=== PATIENT | male | born 1970 | race Caucasian/White ===

== ENCOUNTER 2020-11-19 11:27 | Inpatient (IN) | payer OTHER ==
[2020-11-19 13:19] LABS: PH,URINE 5.5 (5.0-8.0); URINE APPEARANCE CLEAR; URINE BILIRUBIN NEGATIVE (NEGATIVE); URINE COLOR YELLOW; URINE GLUCOSE (UA) NEGATIVE (NEGATIVE); URINE KETONE NEGATIVE (NEGATIVE); URINE LEUK ESTERASE NEGATIVE (NEGATIVE); URINE NITRITE NEGATIVE (NEGATIVE); URINE PROTEIN TRACE (NEGATIVE); URINE UROBILINOGEN 0.2 mg/dL (0.2-1.0)
[2020-11-19 13:36] LABS: HEMATOCRIT 42.2 % (35.4-49); HEMOGLOBIN 14.5 GM/dL (11.7-16.9); MCHC 34.3 g/dl (32.0-35.9); MEAN CELL VOLUME 87.5 fl (80-96); MEAN PLT VOLUME 9.7 fl (7.5-11.1); PLATELET COUNT 219 10^3/uL (134-434); RBC 4.82 M/mm3 (4.00-5.60); RDW 13.3 % (11.9-15.9); WHITE BLOOD COUNT 7.3 K/mm3 (4.0-10.0)
[2020-11-19 13:55] LABS: CHLORIDE 104 mmol/L (98-107); SODIUM 141 mmol/L (136-145)
[2020-11-19 13:58] LABS: ANION GAP 7 MMOL/L (8-16); BLOOD UREA NITROGEN 11.1 mg/dL (7-18); CO2 31 mmol/L (21-32); GLUCOSE,RANDOM 87 mg/dL (74-106); LIPASE 83 U/L (73-393); MAGNESIUM 2.2 mg/dL (1.8-2.4)
[2020-11-19 14:01] LABS: CREATININE 0.8 mg/dL (0.55-1.3); PHOSPHOROUS 3.5 mg/dL (2.5-4.9); SGOT/AST 22 U/L (15-37); SGPT/ALT 38 U/L (13-61)
[2020-11-19 14:02] LABS: BILIRUBIN,TOTAL 0.8 mg/dL (0.2-1)
[2020-11-19 14:03] LABS: ALK PHOS 103 U/L (45-117)
[2020-11-19] MEDS ORDERED: PIPERACILLIN/TAZOB 4.5 GM 4.5 GM in DEXTROSE 5%-WATER 100 ML IVPB ONE (15:55)
[2020-11-19] MEDS ORDERED: VANCOMYCIN 1 GM in D5W (PRE-DOCKED) 1,000 MG/250 ML IVPB ONE (15:58)
[2020-11-19] MEDS ORDERED: VANCOMYCIN HCL 1,500 MG in DEXTROSE 5%-WATER - 500 ML IVPB ONE (15:59)
[2020-11-19] MEDS ORDERED: VANCOMYCIN 1 GRAM (PRE-DOCKED) 1,000 MG/250 ML BAG IVPB ONE (16:17)
[2020-11-19] MEDS ORDERED: VANCOMYCIN 500 MG VIAL (RESTRICTED TO ID ONLY) ONE (16:17)
[2020-11-19] MEDS ORDERED: PIPERACILLIN/TAZOB 4.5 GM 4.5 GM/100 ML BAG IVPB ONE (16:17)
[2020-11-19] MEDS: DEXTROSE 5%-NORMAL SALINE 1,000 ML IV SCH (19:51)
[2020-11-19] MEDS ORDERED: DEXTROSE 5%-WATER 100 ML IVPB ONE (23:39)
[2020-11-19] MEDS ORDERED: PIPERACILLIN/TAZOBACTAM 4.5 GM VIAL IVPB ONE (23:39)
[2020-11-19] MEDS: PIPERACILLIN/TAZOB 4.5 GM 4.5 GM in DEXTROSE 5%-WATER 100 ML IVPB SCH (23:48)
[2020-11-20 02:54] VITALS: BMI 31.0
[2020-11-20] MEDS ORDERED: DEXTROSE 5%-WATER 100 ML IVPB ONE ×3 (06:02→20:33)
[2020-11-20] MEDS ORDERED: PIPERACILLIN/TAZOBACTAM 4.5 GM VIAL IVPB ONE ×2 (06:02→15:24)
[2020-11-20] MEDS: PIPERACILLIN/TAZOB 4.5 GM 4.5 GM in DEXTROSE 5%-WATER 100 ML IVPB SCH ×2 (06:21→15:27)
[2020-11-20] MEDS ORDERED: CEFTRIAXONE 1 GM in DEXTROSE 5%-WATER - 50 ML IVPB SCH (10:00)
[2020-11-20] MEDS: PANTOPRAZOLE SODIUM 40 MG VIAL IVPUSH SCH (10:01)
[2020-11-20] MEDS ORDERED: ACETAMINOPHEN 1000 MG/100 ML VIAL (NON FORMULARY) IVPB PRN (10:42)
[2020-11-20] MEDS: DEXTROSE 5%-NORMAL SALINE 1,000 ML IV SCH ×2 (15:30→18:08)
[2020-11-20] MEDS: TAMSULOSIN HCL 0.4 MG CAP PO SCH (18:19)
[2020-11-20] MEDS: CEFTRIAXONE 2 GM in DEXTROSE 5%-WATER 100 ML IVPB SCH (21:29)
[2020-11-20] MEDS ORDERED: PIPERACILLIN/TAZOB 4.5 GM 4.5 GM in DEXTROSE 5%-WATER 100 ML IVPB SCH (22:00)
[2020-11-21] MEDS: DEXTROSE 5%-NORMAL SALINE 1,000 ML IV SCH ×4 (00:04→20:39)
[2020-11-21] MEDS: TAMSULOSIN HCL 0.4 MG CAP PO SCH (08:48)
[2020-11-21] MEDS: PANTOPRAZOLE SODIUM 40 MG VIAL IVPUSH SCH (08:48)
[2020-11-21 08:51] LABS: BASO % 0.6 % (0-2.0); EOS % 1.9 % (0-4.5); HEMATOCRIT 39.7 % (35.4-49); HEMOGLOBIN 13.4 GM/dL (11.7-16.9); LYMPH % 21.8 % (8-40); MCH 29.8 pg (25.7-33.7); MCHC 33.7 g/dl (32.0-35.9); MEAN CELL VOLUME 88.4 fl (80-96); MEAN PLT VOLUME 9.8 fl (7.5-11.1); MONO % 12.3 % (3.8-10.2); NEUT % 63.4 % (42.8-82.8); PLATELET COUNT 228 10^3/uL (134-434); RDW 13.6 % (11.9-15.9); WHITE BLOOD COUNT 4.8 K/mm3 (4.0-10.0)
[2020-11-21 09:14] LABS: BLOOD UREA NITROGEN 7.6 mg/dL (7-18); CALCIUM 8.5 mg/dL (8.5-10.1)
[2020-11-21 09:17] LABS: CREATININE 0.8 mg/dL (0.55-1.3)
[2020-11-21] MEDS ORDERED: DEXTROSE 5%-WATER 100 ML IVPB ONE (09:21)
[2020-11-21] MEDS: CEFTRIAXONE 2 GM in DEXTROSE 5%-WATER 100 ML IVPB SCH (09:36)
[2020-11-21] MEDS ORDERED: MAG HYDROX/AL HYDROX/SIMETH 30 ML UNIT-DOSE CUP PO PRN (20:27)
[2020-11-22] MEDS ORDERED: PT OWN MED DRAWER 7, Y5N ONE (09:54)
[2020-11-22] MEDS ORDERED: DEXTROSE 5%-WATER 100 ML IVPB ONE (09:54)
[2020-11-22] MEDS: PANTOPRAZOLE SODIUM 40 MG VIAL IVPUSH SCH (10:06)
[2020-11-22] MEDS: CEFTRIAXONE 2 GM in DEXTROSE 5%-WATER 100 ML IVPB SCH (10:07)
[2020-11-22] MEDS: TAMSULOSIN HCL 0.4 MG CAP PO SCH (10:08)
[2020-11-22 13:36] VITALS: BP 137/81; PULSE 74; TEMP 98.7
== END 2020-11-22 18:04 | disposition home or self-care (01) | DRG 392 ==
LOC: JER 11:27 → JERBED 16:01 → J8W 20:08
PROVIDERS: ADMIT Internal Medicine; ATTEND Internal Medicine
PROC: 02HV33Z Insertion of Infusion Device into Superior Vena Cava, Percutaneous Approach (ICD-10-PCS; principal; 2020-11-22)
PROC: B518ZZA Fluoroscopy of Superior Vena Cava, Guidance (ICD-10-PCS; 2020-11-22)
DX: K57.20 Diverticulitis of large intestine with perforation and abscess without bleeding (principal); N32.1 Vesicointestinal fistula; K21.9 Gastro-esophageal reflux disease without esophagitis; I10 Essential (primary) hypertension; N32.89 Other specified disorders of bladder; N40.1 Benign prostatic hyperplasia with lower urinary tract symptoms; R33.8 Other retention of urine
CPT/HCPCS: 36415; 36569; 74177-TC; 77001-TC-FY; 80048; 80053; 81003; 82550; 82553; 83690; 83735; 84100; 84484; 85025; 85027; 86140; 87086; 87491; 87591; 93005; 93010; 99285-25; C1751; C9803; G0463; J0131; Q9967; U0003; U0005

== ENCOUNTER 2021-01-16 21:04 | Inpatient (IN) | payer OTHER ==
[2021-01-16] MEDS ORDERED: ACETAMINOPHEN 1000 MG/100 ML VIAL IVPB ONE (22:46)
[2021-01-16] MEDS ORDERED: SODIUM CHLORIDE 1,000 ML IV STA (22:46)
[2021-01-16] MEDS ORDERED: PIPERACILLIN/TAZOB 4.5 GM 4.5 GM in DEXTROSE 5%-WATER 100 ML IVPB ONE (22:49)
[2021-01-16] MEDS ORDERED: VANCOMYCIN 1 GM in D5W (PRE-DOCKED) 1,000 MG/250 ML IVPB ONE (22:49)
[2021-01-16 23:00] LABS: EPI CELLS 2 /uL (0-25.1); HYALINE CASTS 2 /uL (0-3.1); URINE APPEARANCE CLOUDY; URINE BACTERIA 533 /uL (0-1359); URINE BILIRUBIN NEGATIVE (NEGATIVE); URINE COLOR YELLOW; URINE GLUCOSE (UA) NEGATIVE (NEGATIVE); URINE KETONE NEGATIVE (NEGATIVE); URINE LEUK ESTERASE 3+ (NEGATIVE); URINE NITRITE NEGATIVE (NEGATIVE); URINE PROTEIN NEGATIVE (NEGATIVE); URINE RBC 9 /uL (0-23.9); URINE UROBILINOGEN 0.2 mg/dL (0.2-1.0); URINE WBC 701 /uL (0-25.8)
[2021-01-16] MEDS ORDERED: PIPERACILLIN/TAZOB 4.5 GM 4.5 GM/100 ML BAG IVPB ONE (23:07)
[2021-01-16] MEDS ORDERED: ACETAMINOPHEN INJECTION 100 ML IVPB ONE (23:07)
[2021-01-16 23:20] LABS: HEMATOCRIT 38.8 % (35.4-49); HEMOGLOBIN 13.2 GM/dL (11.7-16.9); MCH 28.8 pg (25.7-33.7); MEAN CELL VOLUME 84.8 fl (80-96); PLATELET COUNT 237 10^3/uL (134-434); RBC 4.58 M/mm3 (4.00-5.60); RDW 13.1 % (11.9-15.9); WHITE BLOOD COUNT 12.7 K/mm3 (4.0-10.0)
[2021-01-16 23:21] LABS: INR 1.15 (0.83-1.09); PROTHROMBIN TIME (PATIENT) 13.5 SEC (9.7-13.0)
[2021-01-16 23:22] LABS: VENOUS BASE EXCESS -0.6 mmol/L (-2-2); VENOUS O2 SATURATION 32.2 % (70-80); VENOUS PCO2 44.8 mmHg (38-52); VENOUS PH 7.365 (7.310-7.410)
[2021-01-16 23:24] LABS: ACTIVATED PTT 39.8 SECONDS (25.2-36.5)
[2021-01-16] MEDS ORDERED: morphine CARPU-JECT 4 MG/1 ML DISP.SYRIN IVPUSH ONE (23:35)
[2021-01-16 23:37] LABS: CHLORIDE 106 mmol/L (98-107); SODIUM 139 mmol/L (136-145)
[2021-01-16] MEDS ORDERED: ONDANSETRON 4 MG/2 ML VIAL IVPUSH ONE (23:37)
[2021-01-16 23:39] LABS: ANION GAP 6 MMOL/L (8-16); BLOOD UREA NITROGEN 14.4 mg/dL (7-18); CALCIUM 8.5 mg/dL (8.5-10.1); CO2 27 mmol/L (21-32); GLUCOSE,RANDOM 100 mg/dL (74-106)
[2021-01-16 23:40] LABS: ANISOCYTOSIS 1+; MACROCYTOSIS 0; PLATELET ESTIMATE NORMAL
[2021-01-16 23:42] LABS: CREATININE 1.1 mg/dL (0.55-1.3); SGOT/AST 20 U/L (15-37); SGPT/ALT 34 U/L (13-61)
[2021-01-16 23:43] LABS: TOT PROT 7.9 g/dl (6.4-8.2)
[2021-01-16 23:45] LABS: ALK PHOS 116 U/L (45-117)
[2021-01-17] MEDS ORDERED: ONDANSETRON 4 MG/2 ML VIAL ONE (01:53)
[2021-01-17] MEDS ORDERED: morphine SULFATE 4 MG/ML VIAL ONE (01:53)
[2021-01-17] MEDS ORDERED: ACETAMINOPHEN 1000 MG/100 ML VIAL IVPB ONE (04:50)
[2021-01-17] MEDS ORDERED: SODIUM CHLORIDE 1,000 ML IV STA (05:04)
[2021-01-17 06:10] LABS: BASO % 0.5 % (0-2.0); EOS % 0.2 % (0-4.5); HEMATOCRIT 37.8 % (35.4-49); HEMOGLOBIN 13.1 GM/dL (11.7-16.9); LYMPH % 5.7 % (8-40); MCH 29.3 pg (25.7-33.7); MCHC 34.7 g/dl (32.0-35.9); MEAN CELL VOLUME 84.5 fl (80-96); MEAN PLT VOLUME 9.4 fl (7.5-11.1); MONO % 7.1 % (3.8-10.2); NEUT % 86.5 % (42.8-82.8); PLATELET COUNT 208 10^3/uL (134-434); RBC 4.47 M/mm3 (4.00-5.60); RDW 12.9 % (11.9-15.9); WHITE BLOOD COUNT 14.5 K/mm3 (4.0-10.0)
[2021-01-17 06:30] LABS: CALCIUM 8.2 mg/dL (8.5-10.1)
[2021-01-17 06:35] LABS: CREATININE 0.9 mg/dL (0.55-1.3)
[2021-01-17] MEDS ORDERED: PIPERACILLIN/TAZOBACTAM 4.5 GM VIAL IVPB ONE ×2 (07:49→17:21)
[2021-01-17] MEDS ORDERED: DEXTROSE 5%-WATER 100 ML IVPB ONE ×2 (07:49→17:21)
[2021-01-17] MEDS: DEXTROSE 5%-NORMAL SALINE 1,000 ML IV SCH ×2 (07:53→22:27)
[2021-01-17] MEDS: PIPERACILLIN/TAZOB 4.5 GM 4.5 GM in DEXTROSE 5%-WATER 100 ML IVPB SCH ×3 (07:53→17:27)
[2021-01-17] MEDS: TAMSULOSIN HCL 0.4 MG CAP PO SCH (07:55)
[2021-01-17] MEDS: ENOXAPARIN NA (PORCINE) 40 MG/0.4 ML DISP.SYRIN SQ SCH (09:34)
[2021-01-17] MEDS: FAMOTIDINE 40 MG/5 ML ORAL SUSPENSION PO SCH (09:35)
[2021-01-17] MEDS ORDERED: VALSARTAN 160 MG TABLET PO SCH (10:00)
[2021-01-17] MEDS ORDERED: amLODIPine BESYLATE 10 MG TABLET (FP) PO ONE (10:00)
[2021-01-17] MEDS ORDERED: VANCOMYCIN HCL 1,500 MG in DEXTROSE 5%-WATER - 500 ML IVPB SCH (12:00)
[2021-01-17] MEDS ORDERED: VANCOMYCIN HCL 1,500 MG/500 ML BAG IVPB SCH (12:00)
[2021-01-17] MEDS ORDERED: PT OWN MED DRAWER 7, Y5N ONE (12:58)
[2021-01-17] MEDS: ACETAMINOPHEN 1000 MG/100 ML VIAL IVPB PRN ×2 (13:28→21:34)
[2021-01-17] MEDS ORDERED: morphine SULFATE 4 MG/ML VIAL IVPUSH ONE (17:48)
[2021-01-18] MEDS ORDERED: DEXTROSE 5%-WATER 100 ML IVPB ONE ×2 (01:35→08:03)
[2021-01-18] MEDS ORDERED: PIPERACILLIN/TAZOBACTAM 4.5 GM VIAL IVPB ONE ×2 (01:35→08:03)
[2021-01-18] MEDS: PIPERACILLIN/TAZOB 4.5 GM 4.5 GM in DEXTROSE 5%-WATER 100 ML IVPB SCH ×2 (01:36→09:32)
[2021-01-18] MEDS: DEXTROSE 5%-NORMAL SALINE 1,000 ML IV SCH ×2 (06:18→08:06)
[2021-01-18] MEDS ORDERED: MIDAZOLAM HCL 2 MG/2 ML SINGLE DOSE VIAL ONE (08:37)
[2021-01-18] MEDS ORDERED: PROPOFOL 20 ML ONE (08:37)
[2021-01-18 08:46] LABS: BASO % 0.3 % (0-2.0); HEMATOCRIT 34.1 % (35.4-49); HEMOGLOBIN 11.6 GM/dL (11.7-16.9); LYMPH % 4.8 % (8-40); MCH 28.9 pg (25.7-33.7); MCHC 34.2 g/dl (32.0-35.9); MEAN CELL VOLUME 84.4 fl (80-96); MEAN PLT VOLUME 8.7 fl (7.5-11.1); MONO % 6.4 % (3.8-10.2); NEUT % 88.5 % (42.8-82.8); PLATELET COUNT 192 10^3/uL (134-434); RBC 4.03 M/mm3 (4.00-5.60); RDW 13.1 % (11.9-15.9); WHITE BLOOD COUNT 16.2 K/mm3 (4.0-10.0)
[2021-01-18] MEDS: TAMSULOSIN HCL 0.4 MG CAP PO SCH (08:46)
[2021-01-18] MEDS ORDERED: oxyCODONE HCL 5 MG TABLET PO PRN (08:46)
[2021-01-18] MEDS ORDERED: ONDANSETRON 4 MG/2 ML VIAL IVPUSH PRN ×2 (08:46→11:14)
[2021-01-18] MEDS ORDERED: LACTATED RINGERS SOLUTION 1,000 ML IV SCH (09:00)
[2021-01-18 09:12] LABS: CALCIUM 8.2 mg/dL (8.5-10.1)
[2021-01-18 09:14] LABS: CREATININE 0.9 mg/dL (0.55-1.3)
[2021-01-18 09:16] LABS: BILIRUBIN,TOTAL 2.1 mg/dL (0.2-1); TOT PROT 6.5 g/dl (6.4-8.2)
[2021-01-18 09:17] LABS: ALBUMIN 2.9 g/dl (3.4-5.0)
[2021-01-18] MEDS ORDERED: LIDOCAINE HCL/PF 2% SDV 5ML VIAL ONE (09:24)
[2021-01-18] MEDS ORDERED: ceFAZolin SODIUM 1 GM VIAL IVPB ONE ×2 (09:36→09:43)
[2021-01-18] MEDS ORDERED: amLODIPine BESYLATE 10 MG TABLET (FP) PO SCH (10:00)
[2021-01-18] MEDS: ENOXAPARIN NA (PORCINE) 40 MG/0.4 ML DISP.SYRIN SQ SCH (10:16)
[2021-01-18] MEDS ORDERED: DEXAMETHASONE SOD PHOSPHATE 4 MG/1 ML VIAL ONE (10:17)
[2021-01-18] MEDS: FAMOTIDINE 40 MG/5 ML ORAL SUSPENSION PO SCH (10:17)
[2021-01-18] MEDS ORDERED: LIDOCAINE HCL 2% JELLY 10 ML CARTRIDGE ONE ×2 (10:41→10:43)
[2021-01-18] MEDS ORDERED: HYDROmorphone HCl 2 MG/ML VIAL ONE (11:11)
[2021-01-18] MEDS ORDERED: HYDROmorphone HCl 2 MG/ML VIAL IVPUSH ONE ×2 (11:14→12:23)
[2021-01-18] MEDS ORDERED: DEXTROSE 5%-NORMAL SALINE 1,000 ML IV SCH (11:30)
[2021-01-18] MEDS: FINASTERIDE 5 MG TABLET (FP) PO SCH (13:39)
[2021-01-18] MEDS: LACTATED RINGERS SOLUTION 1,000 ML IV SCH ×2 (13:39→21:38)
[2021-01-18] MEDS: ERTAPENEM SODIUM 1 GM in SODIUM CHLORIDE 50 ML IVPB SCH (17:45)
[2021-01-18] MEDS ORDERED: PIPERACILLIN/TAZOB 4.5 GM 4.5 GM in DEXTROSE 5%-WATER 100 ML IVPB SCH (18:00)
[2021-01-18] MEDS: oxyCODONE HCL 5 MG TABLET PO PRN (21:49)
[2021-01-19] MEDS: LACTATED RINGERS SOLUTION 1,000 ML IV SCH ×2 (05:48→12:23)
[2021-01-19] MEDS: TAMSULOSIN HCL 0.4 MG CAP PO SCH (08:52)
[2021-01-19] MEDS: ERTAPENEM SODIUM 1 GM in SODIUM CHLORIDE 50 ML IVPB SCH (09:43)
[2021-01-19] MEDS: FINASTERIDE 5 MG TABLET (FP) PO SCH (10:05)
[2021-01-19] MEDS: ENOXAPARIN NA (PORCINE) 40 MG/0.4 ML DISP.SYRIN SQ SCH (10:05)
[2021-01-19] MEDS: amLODIPine BESYLATE 10 MG TABLET (FP) PO SCH (10:05)
[2021-01-19] MEDS ORDERED: PT OWN MED DRAWER 7, Y5N ONE (10:10)
[2021-01-19] MEDS: FAMOTIDINE 40 MG/5 ML ORAL SUSPENSION PO SCH (10:11)
[2021-01-19] MEDS: ACETAMINOPHEN 325 MG TABLET (FP) PO PRN ×2 (12:19→20:13)
[2021-01-19] MEDS: oxyCODONE HCL 5 MG TABLET PO PRN (22:47)
[2021-01-20] MEDS: ACETAMINOPHEN 325 MG TABLET (FP) PO PRN (02:37)
[2021-01-20] MEDS ORDERED: PT OWN MED DRAWER 7, Y5N ONE (09:04)
[2021-01-20] MEDS: FAMOTIDINE 40 MG/5 ML ORAL SUSPENSION PO SCH (09:05)
[2021-01-20] MEDS: TAMSULOSIN HCL 0.4 MG CAP PO SCH (09:05)
[2021-01-20] MEDS: ERTAPENEM SODIUM 1 GM in SODIUM CHLORIDE 50 ML IVPB SCH (09:05)
[2021-01-20] MEDS: ENOXAPARIN NA (PORCINE) 40 MG/0.4 ML DISP.SYRIN SQ SCH (09:05)
[2021-01-20] MEDS: FINASTERIDE 5 MG TABLET (FP) PO SCH (09:05)
[2021-01-20] MEDS: amLODIPine BESYLATE 10 MG TABLET (FP) PO SCH (09:05)
[2021-01-20 10:04] LABS: BASO % 0.3 % (0-2.0); EOS % 0.6 % (0-4.5); HEMATOCRIT 40.9 % (35.4-49); HEMOGLOBIN 13.5 GM/dL (11.7-16.9); LYMPH % 10.2 % (8-40); MCH 28.7 pg (25.7-33.7); MEAN CELL VOLUME 86.8 fl (80-96); MEAN PLT VOLUME 8.9 fl (7.5-11.1); MONO % 8.4 % (3.8-10.2); NEUT % 80.5 % (42.8-82.8); PLATELET COUNT 308 10^3/uL (134-434); RBC 4.71 M/mm3 (4.00-5.60); RDW 13.5 % (11.9-15.9)
[2021-01-20 10:27] LABS: BLOOD UREA NITROGEN 12.2 mg/dL (7-18); CALCIUM 8.9 mg/dL (8.5-10.1)
[2021-01-20 10:28] LABS: ALBUMIN 3.3 g/dl (3.4-5.0)
[2021-01-20 10:32] LABS: CREATININE 0.8 mg/dL (0.55-1.3)
[2021-01-20 10:33] LABS: TOT PROT 7.6 g/dl (6.4-8.2)
[2021-01-20] MEDS ORDERED: INSULIN (NOVOLOG) ASPART 100 UNITS/ML 10ML VIAL ONE (11:02)
[2021-01-20 14:19] LABS: PLATELET ESTIMATE NORMAL
[2021-01-20] MEDS ORDERED: ACETAMINOPHEN 1000 MG/100 ML VIAL IVPB ONE (17:55)
[2021-01-20] MEDS: LACTATED RINGERS SOLUTION 1,000 ML IV SCH (22:07)
[2021-01-21] MEDS: LACTATED RINGERS SOLUTION 1,000 ML IV SCH ×2 (06:11→11:33)
[2021-01-21] MEDS ORDERED: PT OWN MED DRAWER 7, Y5N ONE (11:06)
[2021-01-21] MEDS: FINASTERIDE 5 MG TABLET (FP) PO SCH (11:31)
[2021-01-21] MEDS: amLODIPine BESYLATE 10 MG TABLET (FP) PO SCH (11:31)
[2021-01-21] MEDS: TAMSULOSIN HCL 0.4 MG CAP PO SCH (11:31)
[2021-01-21] MEDS: ENOXAPARIN NA (PORCINE) 40 MG/0.4 ML DISP.SYRIN SQ SCH (11:32)
[2021-01-21] MEDS: ERTAPENEM SODIUM 1 GM in SODIUM CHLORIDE 50 ML IVPB SCH (11:32)
[2021-01-21] MEDS: FAMOTIDINE 40 MG/5 ML ORAL SUSPENSION PO SCH (11:33)
[2021-01-21] MEDS: ACETAMINOPHEN 325 MG TABLET (FP) PO PRN (13:31)
[2021-01-22] MEDS: LACTATED RINGERS SOLUTION 1,000 ML IV SCH (01:17)
[2021-01-22 08:37] LABS: HEMATOCRIT 40.3 % (35.4-49); HEMOGLOBIN 13.5 GM/dL (11.7-16.9); MCH 29.1 pg (25.7-33.7); MCHC 33.5 g/dl (32.0-35.9); MEAN PLT VOLUME 8.7 fl (7.5-11.1); PLATELET COUNT 331 10^3/uL (134-434); RBC 4.64 M/mm3 (4.00-5.60); RDW 13.6 % (11.9-15.9); WHITE BLOOD COUNT 7.5 K/mm3 (4.0-10.0)
[2021-01-22 09:08] LABS: BLOOD UREA NITROGEN 13.5 mg/dL (7-18); CALCIUM 9.6 mg/dL (8.5-10.1)
[2021-01-22 09:09] LABS: ALBUMIN 3.1 g/dl (3.4-5.0)
[2021-01-22 09:11] LABS: CREATININE 0.8 mg/dL (0.55-1.3)
[2021-01-22 09:13] LABS: BILIRUBIN,TOTAL 1.2 mg/dL (0.2-1); TOT PROT 7.3 g/dl (6.4-8.2)
[2021-01-22] MEDS: TAMSULOSIN HCL 0.4 MG CAP PO SCH (09:18)
[2021-01-22] MEDS ORDERED: PT OWN MED DRAWER 7, Y5N ONE (09:29)
[2021-01-22] MEDS: ENOXAPARIN NA (PORCINE) 40 MG/0.4 ML DISP.SYRIN SQ SCH (09:30)
[2021-01-22] MEDS: FAMOTIDINE 40 MG/5 ML ORAL SUSPENSION PO SCH (09:30)
[2021-01-22] MEDS: amLODIPine BESYLATE 10 MG TABLET (FP) PO SCH (09:30)
[2021-01-22] MEDS: ERTAPENEM SODIUM 1 GM in SODIUM CHLORIDE 50 ML IVPB SCH (09:30)
[2021-01-22] MEDS: FINASTERIDE 5 MG TABLET (FP) PO SCH (09:30)
[2021-01-22 11:50] LABS: ANISOCYTOSIS 0; HELMET CELLS 0; HOWELL-JOLLY BODIES 0; MACROCYTOSIS 0; OVALOCYTE 0; PLATELET ESTIMATE NORMAL; ROULEAU 0; SICKELED CELLS 0; TARGET CELLS 0; TEAR DROP CELLS 0; TOXIC GRANULATION 0
[2021-01-22] MEDS: AMINO ACIDS 4.25%/D5W 1,000 ML IV SCH (13:17)
[2021-01-23] MEDS: AMINO ACIDS 4.25%/D5W 1,000 ML IV SCH ×2 (00:57→13:43)
[2021-01-23] MEDS ORDERED: PT OWN MED DRAWER 7, Y5N ONE (09:23)
[2021-01-23] MEDS: FINASTERIDE 5 MG TABLET (FP) PO SCH (09:27)
[2021-01-23] MEDS: FAMOTIDINE 40 MG/5 ML ORAL SUSPENSION PO SCH (09:27)
[2021-01-23] MEDS: ENOXAPARIN NA (PORCINE) 40 MG/0.4 ML DISP.SYRIN SQ SCH (09:27)
[2021-01-23] MEDS: amLODIPine BESYLATE 10 MG TABLET (FP) PO SCH (09:27)
[2021-01-23] MEDS: TAMSULOSIN HCL 0.4 MG CAP PO SCH (09:27)
[2021-01-23] MEDS: ERTAPENEM SODIUM 1 GM in SODIUM CHLORIDE 50 ML IVPB SCH (09:28)
[2021-01-24] MEDS: AMINO ACIDS 4.25%/D5W 1,000 ML IV SCH ×2 (01:43→15:37)
[2021-01-24] MEDS ORDERED: PT OWN MED DRAWER 7, Y5N ONE (09:27)
[2021-01-24] MEDS: FAMOTIDINE 40 MG TABLET PO SCH (09:28)
[2021-01-24] MEDS: FINASTERIDE 5 MG TABLET (FP) PO SCH (09:28)
[2021-01-24] MEDS: ERTAPENEM SODIUM 1 GM in SODIUM CHLORIDE 50 ML IVPB SCH (09:28)
[2021-01-24] MEDS: ENOXAPARIN NA (PORCINE) 40 MG/0.4 ML DISP.SYRIN SQ SCH (09:28)
[2021-01-24] MEDS: TAMSULOSIN HCL 0.4 MG CAP PO SCH (09:28)
[2021-01-24] MEDS: amLODIPine BESYLATE 10 MG TABLET (FP) PO SCH (09:28)
[2021-01-25] MEDS: AMINO ACIDS 4.25%/D5W 1,000 ML IV SCH ×2 (01:09→14:58)
[2021-01-25] MEDS: ENOXAPARIN NA (PORCINE) 40 MG/0.4 ML DISP.SYRIN SQ SCH (10:10)
[2021-01-25] MEDS: FAMOTIDINE 40 MG TABLET PO SCH (10:10)
[2021-01-25] MEDS: TAMSULOSIN HCL 0.4 MG CAP PO SCH (10:11)
[2021-01-25] MEDS: ERTAPENEM SODIUM 1 GM in SODIUM CHLORIDE 50 ML IVPB SCH (10:11)
[2021-01-25] MEDS: FINASTERIDE 5 MG TABLET (FP) PO SCH (10:11)
[2021-01-25] MEDS: amLODIPine BESYLATE 10 MG TABLET (FP) PO SCH (10:12)
[2021-01-26] MEDS: AMINO ACIDS 4.25%/D5W 1,000 ML IV SCH ×2 (00:25→14:36)
[2021-01-26 08:50] LABS: BASO % 0.4 % (0-2.0); EOS % 2.3 % (0-4.5); HEMATOCRIT 39.4 % (35.4-49); HEMOGLOBIN 13.4 GM/dL (11.7-16.9); LYMPH % 15.7 % (8-40); MCH 29.5 pg (25.7-33.7); MCHC 33.9 g/dl (32.0-35.9); MEAN PLT VOLUME 8.8 fl (7.5-11.1); NEUT % 74.6 % (42.8-82.8); PLATELET COUNT 386 10^3/uL (134-434); RBC 4.53 M/mm3 (4.00-5.60); RDW 13.4 % (11.9-15.9); WHITE BLOOD COUNT 7.6 K/mm3 (4.0-10.0)
[2021-01-26 09:17] LABS: CALCIUM 8.9 mg/dL (8.5-10.1)
[2021-01-26 09:18] LABS: ALBUMIN 3.2 g/dl (3.4-5.0)
[2021-01-26 09:21] LABS: CREATININE 0.8 mg/dL (0.55-1.3)
[2021-01-26 09:22] LABS: BILIRUBIN,TOTAL 1.9 mg/dL (0.2-1)
[2021-01-26 09:23] LABS: TOT PROT 7.5 g/dl (6.4-8.2)
[2021-01-26] MEDS ORDERED: PT OWN MED DRAWER 7, Y5N ONE ×2 (09:41→10:09)
[2021-01-26] MEDS: ERTAPENEM SODIUM 1 GM in SODIUM CHLORIDE 50 ML IVPB SCH (09:50)
[2021-01-26] MEDS: TAMSULOSIN HCL 0.4 MG CAP PO SCH (09:51)
[2021-01-26] MEDS: amLODIPine BESYLATE 10 MG TABLET (FP) PO SCH (09:51)
[2021-01-26] MEDS: FINASTERIDE 5 MG TABLET (FP) PO SCH (09:51)
[2021-01-26] MEDS: ENOXAPARIN NA (PORCINE) 40 MG/0.4 ML DISP.SYRIN SQ SCH (09:52)
[2021-01-26] MEDS: FAMOTIDINE 40 MG TABLET PO SCH (10:10)
[2021-01-26 10:12] LABS: ANISOCYTOSIS 0; HELMET CELLS 0; HOWELL-JOLLY BODIES 0; MACROCYTOSIS 0; OVALOCYTE 0; PLATELET ESTIMATE NORMAL; ROULEAU 0; SICKELED CELLS 0; TARGET CELLS 0; TEAR DROP CELLS 0; TOXIC GRANULATION 0
[2021-01-26 19:51] VITALS: BMI 31.8
[2021-01-27] MEDS: AMINO ACIDS 4.25%/D5W 1,000 ML IV SCH (01:40)
[2021-01-27] MEDS: TAMSULOSIN HCL 0.4 MG CAP PO SCH (07:52)
[2021-01-27] MEDS ORDERED: PT OWN MED DRAWER 7, Y5N ONE (09:17)
[2021-01-27] MEDS: FAMOTIDINE 40 MG TABLET PO SCH (09:21)
[2021-01-27] MEDS: amLODIPine BESYLATE 10 MG TABLET (FP) PO SCH (09:21)
[2021-01-27] MEDS: FINASTERIDE 5 MG TABLET (FP) PO SCH (09:21)
[2021-01-27] MEDS: ENOXAPARIN NA (PORCINE) 40 MG/0.4 ML DISP.SYRIN SQ SCH (09:36)
[2021-01-27] MEDS: ERTAPENEM SODIUM 1 GM in SODIUM CHLORIDE 50 ML IVPB SCH (09:36)
[2021-01-27] MEDS: AMINO ACIDS 4.25%/D5W 2,000 ML IV SCH (13:33)
[2021-01-28] MEDS ORDERED: PT OWN MED DRAWER 7, Y5N ONE (08:52)
[2021-01-28] MEDS: FINASTERIDE 5 MG TABLET (FP) PO SCH (09:06)
[2021-01-28] MEDS: ENOXAPARIN NA (PORCINE) 40 MG/0.4 ML DISP.SYRIN SQ SCH (09:06)
[2021-01-28] MEDS: amLODIPine BESYLATE 10 MG TABLET (FP) PO SCH (09:06)
[2021-01-28] MEDS: TAMSULOSIN HCL 0.4 MG CAP PO SCH (09:06)
[2021-01-28] MEDS: FAMOTIDINE 40 MG TABLET PO SCH (09:07)
[2021-01-28] MEDS: ERTAPENEM SODIUM 1 GM in SODIUM CHLORIDE 50 ML IVPB SCH (09:07)
[2021-01-28] MEDS: AMINO ACIDS 4.25%/D5W 2,000 ML IV SCH (17:58)
[2021-01-29 09:54] LABS: BASO % 0.7 % (0-2.0); EOS % 2.8 % (0-4.5); HEMATOCRIT 42.4 % (35.4-49); HEMOGLOBIN 14.3 GM/dL (11.7-16.9); LYMPH % 15.6 % (8-40); MCH 29.3 pg (25.7-33.7); MCHC 33.7 g/dl (32.0-35.9); MEAN PLT VOLUME 9.5 fl (7.5-11.1); MONO % 5.8 % (3.8-10.2); NEUT % 75.1 % (42.8-82.8); PLATELET COUNT 346 10^3/uL (134-434); RBC 4.88 M/mm3 (4.00-5.60); RDW 13.3 % (11.9-15.9)
[2021-01-29 11:29] LABS: ALBUMIN 3.6 g/dl (3.4-5.0); BILIRUBIN,TOTAL 1.4 mg/dL (0.2-1); BLOOD UREA NITROGEN 16.5 mg/dL (7-18); CALCIUM 9.3 mg/dL (8.5-10.1); CREATININE 0.9 mg/dL (0.55-1.3)
[2021-01-29] MEDS: ENOXAPARIN NA (PORCINE) 40 MG/0.4 ML DISP.SYRIN SQ SCH (12:03)
[2021-01-29] MEDS: FAMOTIDINE 40 MG TABLET PO SCH (12:04)
[2021-01-29] MEDS: FINASTERIDE 5 MG TABLET (FP) PO SCH (12:04)
[2021-01-29] MEDS: ERTAPENEM SODIUM 1 GM in SODIUM CHLORIDE 50 ML IVPB SCH (12:04)
[2021-01-29] MEDS: amLODIPine BESYLATE 10 MG TABLET (FP) PO SCH (12:04)
[2021-01-29] MEDS: TAMSULOSIN HCL 0.4 MG CAP PO SCH (12:04)
[2021-01-29] MEDS: AMINO ACIDS 4.25%/D5W 2,000 ML IV SCH (16:15)
[2021-01-30] MEDS: ERTAPENEM SODIUM 1 GM in SODIUM CHLORIDE 50 ML IVPB SCH (10:01)
[2021-01-30] MEDS: amLODIPine BESYLATE 10 MG TABLET (FP) PO SCH (10:01)
[2021-01-30] MEDS: FAMOTIDINE 40 MG TABLET PO SCH (10:01)
[2021-01-30] MEDS: FINASTERIDE 5 MG TABLET (FP) PO SCH (10:01)
[2021-01-30] MEDS: TAMSULOSIN HCL 0.4 MG CAP PO SCH (10:01)
[2021-01-30] MEDS: ENOXAPARIN NA (PORCINE) 40 MG/0.4 ML DISP.SYRIN SQ SCH (10:01)
[2021-01-30] MEDS ORDERED: OXYBUTYNIN CHLORIDE 5 MG TABLET PO ONE (12:45)
[2021-01-30] MEDS: AMINO ACIDS 4.25%/D5W 2,000 ML IV SCH (14:08)
[2021-01-30 16:38] VITALS: BP 128/73; PULSE 82; TEMP 98.5
== END 2021-01-30 16:42 | disposition home or self-care (01) | DRG 854 ==
LOC: JER 21:04 → JERBED 23:09 → J6S 01-17 06:40
PROVIDERS: ADMIT Internal Medicine; ATTEND Internal Medicine
PROC: 0V907ZZ Drainage of Prostate, Via Natural or Artificial Opening (ICD-10-PCS; 2021-01-18)
PROC: 0VT07ZZ Resection of Prostate, Via Natural or Artificial Opening (ICD-10-PCS; 2021-01-18)
PROC: 0TBB7ZZ Excision of Bladder, Via Natural or Artificial Opening (ICD-10-PCS; principal; 2021-01-18 09:00)
PROC: 05HB33Z Insertion of Infusion Device into Right Basilic Vein, Percutaneous Approach (ICD-10-PCS; 2021-01-30)
PROC: B51MZZA Fluoroscopy of Right Upper Extremity Veins, Guidance (ICD-10-PCS; 2021-01-30)
DX: A41.9 Sepsis, unspecified organism (principal); N39.0 Urinary tract infection, site not specified; N41.0 Acute prostatitis; N41.2 Abscess of prostate; N32.1 Vesicointestinal fistula; Z16.12 Extended spectrum beta lactamase (ESBL) resistance; K57.92 Diverticulitis of intestine, part unspecified, without perforation or abscess without bleeding; I10 Essential (primary) hypertension; K21.9 Gastro-esophageal reflux disease without esophagitis; D72.829 Elevated white blood cell count, unspecified; D41.4 Neoplasm of uncertain behavior of bladder; B96.20 Unspecified Escherichia coli [E. coli] as the cause of diseases classified elsewhere
CPT/HCPCS: 36415; 36569; 71045-TC-FY; 74160-TC; 74177-TC; 80048; 80053; 81003; 82803; 83605; 84484; 85025; 85610; 85730; 86140; 87040; 87086; 87186; 88305-TC; 88307-TC; 93005; 93010; 94760; 99285-25; C9803; J0131; U0003; U0005